=== PATIENT | male | born 1995 | race Caucasian/White ===

== ENCOUNTER 2019-06-01 18:05 | Emergency (ER) | payer BC ==
[~2019-06-01] VITALS: Ht 162.6 cm; Wt 56.7 kg
[2019-06-01] MEDS ORDERED: CEFTRIAXONE SOD 1 GM VIAL IM NR (18:45)
[2019-06-01] MEDS ORDERED: HYDROCODONE/APAP 10MG-325MG TAB PO NR (18:45)
[2019-06-01 20:03] LABS: BILIRUBIN,URINE NEGATIVE (NEGATIVE); CLARITY,URINE CLEAR (CLEAR); COLOR,URINE YELLOW (YELLOW); KETONES,URINE NEGATIVE (NEGATIVE); LEUKOCYTE ESTERASE ,URINE NEGATIVE (NEGATIVE); NITRITE,URINE NEGATIVE (NEGATIVE); PROTEIN,URINE DIPSTICK NEGATIVE (NEGATIVE); URINE UROBILINOGEN 0.2 mg/dL (0.2 - 1)
[2019-06-01 20:19] LABS: BACTERIA,URINE FEW /HPF
--- NOTE | 2019-06-01 20:45 | Diagnostic Imaging Report ---
SCROTAL ULTRASOUND HISTORY: Right testicular pain, rule out epididymitis/portions TECHNIQUE: Sonographic evaluation of the scrotum. Color and pulsed wave Doppler ultrasound was used to assess testicular vasculature. COMPARISON: None available. DISCUSSION: RIGHT TESTIS: The right testis measures 4.6 x 2.2 x 3 cm. Normal echotexture, without a focal lesion identified. LEFT TESTIS: The left testis measures 3.3 x 2.3 x 3 cm. Normal echotexture, without a focal lesion identified. VASCULAR: There are symmetric, arterial wave forms detected in both testes. EPIDIDYMIDES: Right: 0.7 x 1.1 x 1.4 cm. A 0.5 x 0.5 x 0.4 cm epididymal head cyst. Left: 1.4 x 1.1 x 1.2 cm. Unremarkable. SCROTUM: No hydrocele. IMPRESSION: 1. Incidental small right epididymal head cysts versus sperm spermatocele. 2. No evidence of torsion or epididymitis. Signed by: Dr. Dylan Lopez D.O., M.M.M. on 06/01/2019 8:42 PM
[2019-06-01 21:00] VITALS: BP 124/73
== END 2019-06-01 21:08 | disposition home or self-care (01) ==
LOC: ER 18:05
DX: N50.811 Right testicular pain (principal); N50.3 Cyst of epididymis
CPT/HCPCS: 76870; 81001; 87086; 93976; 99283

== ENCOUNTER → 2019-08-05 | Outpatient (CLI) | payer BC ==
[~2019-08-05] MED LIST: IOPAMIDOL 370 MG/ML 200 ML INFUS..BTL INJ ONE; SODIUM CHLORIDE 0.9% 50ML 50 ML ONE
--- NOTE | 2019-08-05 16:43 | Diagnostic Imaging Report ---
EXAM: CT Abdomen and Pelvis WITH intravenous contrast INDICATION: Renal calculus, testicular swelling COMPARISON: Testicular ultrasound of 06/01/2019 TECHNIQUE: Abdomen and pelvis were scanned utilizing a multidetector helical scanner from the lung base to the pubic symphysis after administration of IV contrast. Coronal and sagittal reformations were obtained. Routine protocol was performed. Scan was performed during portal venous phase. IV CONTRAST: 100mL of Isovue 370 ORAL CONTRAST: Water RADIATION DOSE: Total DLP: 202.0 mGy*cm Dose modulation, iterative reconstruction, and/or weight based adjustment of the mA/kV was utilized to reduce the radiation dose to as low as reasonably achievable. FINDINGS: LOWER THORAX: Normal. HEPATOBILIARY: No focal liver lesion. No biliary ductal dilation. Unremarkable gallbladder. SPLEEN: No splenomegaly. PANCREAS: No focal masses or ductal dilatation. ADRENALS: No adrenal nodules. KIDNEYS/URETERS: No hydronephrosis, stones, or solid mass lesions. PELVIC ORGANS/BLADDER: Unremarkable. PERITONEUM / RETROPERITONEUM: No free air or fluid. LYMPH NODES: No lymphadenopathy. VESSELS: Unremarkable. GI TRACT: No distention or wall thickening. No bowel obstruction. Normal appendix. BONES AND SOFT TISSUES: No acute osseous injury. No suspicious lytic or blastic lesions. IMPRESSION: No acute findings in the abdomen or pelvis. Specifically, no renal calculi or hydronephrosis. Signed by: Lynda Guerra MD on 08/05/2019 4:40 PM
== END ==
LOC: CT 15:50
PROVIDERS: ATTEND Urology
DX: N45.3 Epididymo-orchitis (principal); N20.0 Calculus of kidney
CPT/HCPCS: 74177; Q9967